=== PATIENT | female | born 1960 | race Caucasian/White ===

== ENCOUNTER 2018-09-15 13:30 | Inpatient (IN) | payer OTHER ==
[2018-09-15] MEDS: CEFEPIME 1GM/50 ML (PMX) 50 ML IVPB (13:54)
[2018-09-15] MEDS: ACETAMINOPHEN 650MG/20.3ML CUP NGT (13:56)
[2018-09-15] MEDS: SODIUM CHLORIDE 0.9% 1L BAG IV* (13:56)
[2018-09-15 14:03] LABS: WHITE BLOOD COUNT 11.7 10^3/ul (4.8-10.8)
[2018-09-15 14:03] LABS: ABNORMAL IP MESSAGE 1; HEMATOCRIT 31.6 % (37.0-47.0); HEMOGLOBIN 9.4 g/dl (12.0-16.0); MEAN CORPUSCULAR HEMOGLOBIN 29.7 pg (29.0-33.0); MEAN CORPUSCULAR HGB CONC 29.7 g/dl (32.0-37.0); MEAN CORPUSCULAR VOLUME 99.7 fl (82.0-101.0); MEAN PLATELET VOLUME 10.8 fl (7.4-10.4); NUCLEATED RED BLOOD CELLS% 0.3 /100WBC (0.0-0.0); PLATELET COUNT 341 10^3/UL (140-415); RED BLOOD COUNT 3.17 10^6/ul (4.20-5.40)
[2018-09-15 14:07] LABS: ADD MAN DIFF? YES; POSITIVE DIFF @See below
[2018-09-15 14:23] LABS: ALANINE AMINOTRANSFERASE 21 IU/L (13-69); ALBUMIN 3.4 g/dl (3.3-4.9); ALBUMIN/GLOBULIN RATIO 1.06; ALKALINE PHOSPHATASE 212 IU/L (42-121); ANION GAP 20 (5-13); ASPARTATE AMINO TRANSFERASE 34 IU/L (15-46); BILIRUBIN,INDIRECT 0.5 mg/dl (0-1.1); BILIRUBIN,TOTAL 0.5 mg/dl (0.2-1.3); BLOOD UREA NITROGEN 85 mg/dl (7-20); CALCIUM 11.9 mg/dl (8.4-10.2); CARBON DIOXIDE 20 mmol/L (21-31); CHLORIDE 108 mmol/L (97-110); Estimated GFR 9 mL/min (>60); GLUCOSE 81 mg/dl (70-220); INR 1.21; LIPASE 14 U/L (23-300); POTASSIUM 4.7 mmol/L (3.5-5.1); PROTIME 15.4 Sec (11.9-14.9); PT RATIO 1.2; SODIUM 148 mmol/L (135-144); TOTAL PROTEIN 6.6 g/dl (6.1-8.1)
[2018-09-15 14:24] LABS: PARTIAL THROMBOPLASTIN TIME 30.1 Sec (23.0-35.0)
[2018-09-15 14:26] LABS: ANISOCYTOSIS 1+ (0-0); BAND NEUTROPHILS #M 5.8 10^3/ul (0.0-0.6); BAND NEUTROPHILS % (M) 50 % (0-4); EOSINOPHILS % (M) 2 % (0-7); GIANT THROMBO% (M) 2 % (0-0); LYMPHOCYTES #M 1.1 10^3/ul (0.8-2.9); LYMPHOCYTES % (M) 10 % (15-51); METAMYELOCYTES #M 0.5 10^3/ul (0.0-0.0); METAMYELOCYTES %M 5 % (0-0); MICROCYTOSIS 1+ (0-0); MONOCYTE #M 0.5 10^3/ul (0.3-0.9); MONOCYTES % (M) 5 % (0-11); MYELOCYTES #M 1.8 10^3/ul (0.0-0.0); MYELOCYTES % (M) 16 % (0-0); PLATELET ESTIMATE NORMAL; POIKILOCYTOSIS 1+ (0-0); POLYCHROMASIA 1+ (0-0); PROMYELOCYTES #M 0.2 10^3/ul (0-0); PROMYELOCYTES % (M) 2 % (0-0); REACTIVE LYMPHOCYTES #M 0.4 10^3/ul (0.0-0.0); REACTIVE LYMPHOCYTES% (M) 4 % (0-0); SEG NEUT #M 1.4 10^3/ul (1.6-7.5); SEGMENTED NEUTROPHILS (M) % 6 % (39-77); SMUDGE%M 4 % (0-0)
[2018-09-15 14:34] LABS: TROPONIN-I 0.034 ng/ml (0.000-0.120)
[2018-09-15 14:38] LABS: Arterial Base Excess -8.2 mmol/L (-3.0-3); Arterial Blood Gas Oxygen Sat 98.2 mmHG (95.0-98.0); Arterial COHb 0.3 % (0.0-3.0); Arterial Fraction of Oxyhgb 97.6 % (93.0-99.0); Arterial HCO3 16.2 mmol/L (22.0-26.0); Arterial MetHb 0.3 % (0.0-1.5); Arterial pCO2 29.4 mmhg (35-45); MODE VENT - AC; Site Right Brachial
[2018-09-15] MEDS: VANCOMYCIN 1 GM (PMX) 250 ML IVPB (14:43)
[2018-09-15] MEDS ORDERED: VANCOMYCIN IV PER PHARMACY XX (16:00)
[2018-09-15] MEDS ORDERED: NACL 0.9% 3 ML SYG IV (16:00)
[2018-09-15] MEDS ORDERED: DEXTROSE 50% 50 ML SYRINGE IV ×2 (17:00)
[2018-09-15] MEDS ORDERED: GLUCOSE GEL 15 GRAM TUBE BUCCAL (17:00)
[2018-09-15] MEDS ORDERED: GLUCOSE GEL 15 GRAM TUBE PO ×2 (17:00)
[2018-09-15] MEDS ORDERED: GLUCAGON 1 MG INJ IM (17:00)
[2018-09-15] MEDS: PIPER-TAZO 2.25 GM/NS 50 ML IVPB (17:35)
[2018-09-15] MEDS: SOD CHLORIDE 0.9% 1,000 ML IV (17:36)
[2018-09-15] MEDS: LABETALOL HCL 20MG INJ IV (17:55)
[2018-09-15] MEDS ORDERED: PIPER-TAZO 3.375 GM IV (PMX) 100 ML IVPB (18:00)
[2018-09-15 18:05] LABS: LACTIC ACID 10.5 mmol/L (0.5-2.0)
[2018-09-15] MEDS ORDERED: INSULIN GLARGINE [LANTus] (100 UNITS/ML) SYG SC (21:00)
[2018-09-15] MEDS: INSULIN GLARGINE [LANTus] (100 UNITS/ML) SYG SC (21:00)
[2018-09-15] MEDS: CALCIUM CARBONATE 500 MG CHEW TAB GTB (21:02)
[2018-09-15] MEDS: LEVETIRACETAM (100 MG/ML PO SYG) GTB (21:02)
[2018-09-15] MEDS: AMANTADINE 100 MG/10 ML POSYR GTB (21:02)
[2018-09-15] MEDS: morphine 2 MG INJ IV (21:03)
[2018-09-15] MEDS: DEXTROSE 5%-0.45% NACL 1,000 ML IV (21:30)
[2018-09-15] MEDS ORDERED: PHENYLephrine 20MG IN 250 ML 250 ML (22:06)
[2018-09-15] MEDS: PHENYLephrine 20MG IN 250 ML 250 ML IV (22:33)
[2018-09-16] MEDS: PHENYLephrine 20MG IN 250 ML 250 ML IV ×2 (00:10→01:49)
[2018-09-16] MEDS: PIPER-TAZO 2.25 GM/NS 50 ML IVPB ×4 (00:29→21:49)
[2018-09-16] MEDS ORDERED: SOD CHLORIDE 0.9% 250 ML IV (01:30)
[2018-09-16] MEDS: ALBUMIN HUMAN 25% 100 ML IV (01:43)
[2018-09-16] MEDS: ACCU-CHEK XX ×6 (01:43→20:58)
[2018-09-16] MEDS: SODIUM CHLORIDE 0.45% 500 ML BAG IV* (01:44)
[2018-09-16] MEDS: SOD CHLORIDE 0.9% 100 ML IV (02:30)
[2018-09-16] MEDS: PHENYLephrine 80 MG in DEXTROSE 5% 242 ML IV ×4 (03:21→23:18)
[2018-09-16 05:13] LABS: WHITE BLOOD COUNT 13.6 10^3/ul (4.8-10.8)
[2018-09-16 05:13] LABS: ABNORMAL IP MESSAGE 1; HEMATOCRIT 26.6 % (37.0-47.0); MEAN CORPUSCULAR HEMOGLOBIN 29.7 pg (29.0-33.0); MEAN CORPUSCULAR HGB CONC 30.1 g/dl (32.0-37.0); MEAN CORPUSCULAR VOLUME 98.9 fl (82.0-101.0); MEAN PLATELET VOLUME 10.4 fl (7.4-10.4); PLATELET COUNT 316 10^3/UL (140-415); RED BLOOD COUNT 2.69 10^6/ul (4.20-5.40); RED CELL DISTRIBUTION WIDTH 17.2 % (11.5-14.5)
[2018-09-16 05:21] LABS: HEMOGLOBIN A1C 5.9 % (0-5.9)
[2018-09-16 05:25] LABS: POSITIVE DIFF @See below
[2018-09-16 05:26] LABS: ADD MAN DIFF? YES
[2018-09-16 05:35] LABS: ANION GAP 17 (5-13); BLOOD UREA NITROGEN 77 mg/dl (7-20); CARBON DIOXIDE 17 mmol/L (21-31); CHLORIDE 114 mmol/L (97-110); GLUCOSE 98 mg/dl (70-220); MAGNESIUM 2.1 mg/dl (1.7-2.5); PHOSPHORUS 4.8 mg/dl (2.5-4.9); POTASSIUM 4.8 mmol/L (3.5-5.1); SODIUM 148 mmol/L (135-144)
[2018-09-16 05:40] LABS: Estimated GFR 12 mL/min (>60)
[2018-09-16 05:44] LABS: CREATININE 3.92 mg/dl (0.44-1.00)
[2018-09-16] MEDS: LEVOTHYROXINE 75 MCG TAB GTB (06:18)
[2018-09-16] MEDS: SENNA TAB GTB (09:00)
[2018-09-16 09:32] LABS: ANISOCYTOSIS 1+ (0-0); BAND NEUTROPHILS #M 6.2 10^3/ul (0.0-0.6); BAND NEUTROPHILS % (M) 46 % (0-4); BASOPHIL #M 0.1 10^3/ul (0.0-0.0); BASOPHILS % (M) 1 % (0-2); BURR CELLS 2+ (0-0); LYMPHOCYTES #M 2.8 10^3/ul (0.8-2.9); LYMPHOCYTES % (M) 21 % (15-51); METAMYELOCYTES %M 8 % (0-0); MICROCYTOSIS 1+ (0-0); MONOCYTE #M 0.1 10^3/ul (0.3-0.9); MONOCYTES % (M) 1 % (0-11); MYELOCYTES #M 0.8 10^3/ul (0.0-0.0); MYELOCYTES % (M) 6 % (0-0); PLATELET ESTIMATE NORMAL; POIKILOCYTOSIS 2+ (0-0); REACTIVE LYMPHOCYTES #M 0.1 10^3/ul (0.0-0.0); REACTIVE LYMPHOCYTES% (M) 1 % (0-0); SEGMENTED NEUTROPHILS (M) % 16 % (39-77); SMUDGE%M 6 % (0-0); TOXIC GRANULATION 2+ (0-0)
[2018-09-16] MEDS: LEVETIRACETAM (100 MG/ML PO SYG) GTB ×2 (09:58→21:49)
[2018-09-16] MEDS: MAGNESIUM HYDROXIDE 30ML CUP GTB (09:58)
[2018-09-16] MEDS: FOLIC ACID 1 MG TAB GTB (09:59)
[2018-09-16] MEDS: ASCORBIC ACID 500 MG TAB GTB (09:59)
[2018-09-16] MEDS: AMANTADINE 100 MG/10 ML POSYR GTB ×2 (09:59→20:58)
[2018-09-16] MEDS: ZINC SULFATE 220 MG CAP GTB (10:00)
[2018-09-16] MEDS: CALCIUM CARBONATE 500 MG CHEW TAB GTB ×2 (10:00→20:58)
[2018-09-16] MEDS: DEXTROSE 5%-0.45% NACL 1,000 ML IV (11:50)
[2018-09-16] MEDS: ONDANSETRON 4 MG INJ IV (14:11)
[2018-09-16] MEDS ORDERED: FENTAnyl (DRIP) 1000 mcg/100mL 100 ML IV (14:39)
[2018-09-16] MEDS: FENTAnyl (DRIP) 1000 mcg/100mL 100 ML IV ×2 (15:11→22:35)
[2018-09-16] MEDS: DEXTROSE 5%-0.9% NACL 1,000 ML IV (15:17)
[2018-09-16] MEDS: LACTATED RINGER'S 1,000 ML IV (15:22)
[2018-09-16] MEDS: BALSAM PERU/CASTOR OIL 60 GM TUBE TOP (20:58)
[2018-09-16] MEDS: INSULIN GLARGINE [LANTus] (100 UNITS/ML) SYG SC (21:06)
[2018-09-17] MEDS: ACCU-CHEK XX ×6 (01:54→20:19)
[2018-09-17] MEDS: DEXTROSE 5%-0.9% NACL 1,000 ML IV ×4 (01:55→23:59)
[2018-09-17] MEDS: PIPER-TAZO 2.25 GM/NS 50 ML IVPB ×3 (05:04→21:11)
[2018-09-17 05:05] LABS: AADO2 Arterial 178.3 mmHg (7.0-24.0); Allen Test ACCEPTAB; Arterial Base Excess -10.2 mmol/L (-3.0-3); Arterial Blood Gas Oxygen Sat 92.7 mmHG (95.0-98.0); Arterial COHb 0.3 % (0.0-3.0); Arterial Fraction of Oxyhgb 92.1 % (93.0-99.0); Arterial HCO3 14.8 mmol/L (22.0-26.0); Arterial MetHb 0.3 % (0.0-1.5); Arterial pCO2 29.2 mmhg (35-45); MODE VENT - AC; Site Right Radial
[2018-09-17 05:12] LABS: ABNORMAL IP MESSAGE 1; HEMATOCRIT 25.2 % (37.0-47.0); HEMOGLOBIN 7.4 g/dl (12.0-16.0); MEAN CORPUSCULAR HEMOGLOBIN 29.6 pg (29.0-33.0); MEAN CORPUSCULAR HGB CONC 29.4 g/dl (32.0-37.0); MEAN CORPUSCULAR VOLUME 100.8 fl (82.0-101.0); MEAN PLATELET VOLUME 9.9 fl (7.4-10.4); NUCLEATED RED BLOOD CELLS% 0.2 /100WBC (0.0-0.0); PLATELET COUNT 262 10^3/UL (140-415); RED CELL DISTRIBUTION WIDTH 17.1 % (11.5-14.5)
[2018-09-17 05:12] LABS: WHITE BLOOD COUNT 14.1 10^3/ul (4.8-10.8)
[2018-09-17 05:13] LABS: POSITIVE DIFF @See below
[2018-09-17 05:14] LABS: ADD MAN DIFF? YES
[2018-09-17 05:31] LABS: ANION GAP 12 (5-13); BLOOD UREA NITROGEN 75 mg/dl (7-20); CALCIUM 9.2 mg/dl (8.4-10.2); CARBON DIOXIDE 18 mmol/L (21-31); CHLORIDE 115 mmol/L (97-110); GLUCOSE 90 mg/dl (70-220); SODIUM 145 mmol/L (135-144)
[2018-09-17 05:32] LABS: VANCOMYCIN,RANDOM 13.7 ug/ml
[2018-09-17 05:37] LABS: Estimated GFR 13 mL/min (>60)
[2018-09-17 05:40] LABS: CREATININE 3.68 mg/dl (0.44-1.00)
[2018-09-17] MEDS: LEVOTHYROXINE 75 MCG TAB GTB (06:04)
[2018-09-17 07:33] LABS: LACTIC ACID 4.1 mmol/L (0.5-2.0)
[2018-09-17] MEDS: CALCIUM CARBONATE 500 MG CHEW TAB GTB ×2 (08:48→20:20)
[2018-09-17] MEDS: ZINC SULFATE 220 MG CAP GTB (08:48)
[2018-09-17] MEDS: AMANTADINE 100 MG/10 ML POSYR GTB ×2 (08:48→20:19)
[2018-09-17] MEDS: ASCORBIC ACID 500 MG TAB GTB (08:48)
[2018-09-17] MEDS: LEVETIRACETAM (100 MG/ML PO SYG) GTB ×2 (08:48→20:19)
[2018-09-17] MEDS: FOLIC ACID 1 MG TAB GTB (08:48)
[2018-09-17] MEDS: MAGNESIUM HYDROXIDE 30ML CUP GTB (09:00)
[2018-09-17] MEDS: SENNA TAB GTB (09:00)
[2018-09-17] MEDS: BALSAM PERU/CASTOR OIL 60 GM TUBE TOP ×2 (09:02→20:21)
[2018-09-17] MEDS: PHENYLephrine 80 MG in DEXTROSE 5% 242 ML IV ×2 (09:05→18:08)
[2018-09-17 10:16] LABS: BAND NEUTROPHILS #M 5.4 10^3/ul (0.0-0.6); BAND NEUTROPHILS % (M) 39 % (0-4); BURR CELLS 1+ (0-0); EOSINOPHILS % (M) 6 % (0-7); GIANT THROMBO% (M) 3 % (0-0); LYMPHOCYTES #M 1.5 10^3/ul (0.8-2.9); LYMPHOCYTES % (M) 11 % (15-51); METAMYELOCYTES #M 0.2 10^3/ul (0.0-0.0); METAMYELOCYTES %M 2 % (0-0); MONOCYTE #M 0.5 10^3/ul (0.3-0.9); MONOCYTES % (M) 4 % (0-11); MYELOCYTES #M 0.1 10^3/ul (0.0-0.0); MYELOCYTES % (M) 1 % (0-0); PLATELET ESTIMATE NORMAL; POIKILOCYTOSIS 3+ (0-0); POLYCHROMASIA 3+ (0-0); PROMYELOCYTES #M 0.1 10^3/ul (0-0); PROMYELOCYTES % (M) 1 % (0-0); SEG NEUT #M 5.8 10^3/ul (1.6-7.5); SEGMENTED NEUTROPHILS (M) % 36 % (39-77); SMUDGE%M 6 % (0-0)
[2018-09-17] MEDS: SOD CHLORIDE 0.9% 1,000 ML IV (12:50)
[2018-09-17] MEDS: FENTAnyl (DRIP) 1000 mcg/100mL 100 ML IV ×2 (13:04→22:34)
[2018-09-17 14:31] LABS: SODIUM,URINE RANDOM 14 mmol/L (30-90)
[2018-09-17 14:35] LABS: ADD UMIC YES; UR ASCORBIC ACID 40 mg/dL (NEGATIVE); UR BACTERIA FEW /HPF (NONE SEEN); UR BILIRUBIN (Dip) NEGATIVE (NEGATIVE); UR BLOOD (Dip) NEGATIVE (NEGATIVE); UR BUDDING YEAST MANY /HPF (NONE SEEN); UR CLARITY CLOUDY (CLEAR); UR COLOR AMBER (YELLOW); UR GLUCOSE (Dip) NEGATIVE (NEGATIVE); UR KETONES (Dip) NEGATIVE (NEGATIVE); UR LEUKOCYTE ESTERASE (Dip) 2+ Leu/ul (NEGATIVE); UR NITRITE (Dip) NEGATIVE (NEGATIVE); UR NONSQUAMOUS EPITHELIAL CELL 2 /HPF (NONE SEEN); UR RBC 12 /HPF (0-5); UR SPECIFIC GRAVITY (Dip) 1.019 (1.003-1.030); UR TOTAL PROTEIN (Dip) 2+ mg/dl (NEGATIVE); UR UROBILINOGEN (Dip) NEGATIVE (NEGATIVE); UR WBC 84 /HPF (0-5)
[2018-09-17] MEDS: VANCOMYCIN 1 GM 250 ML IVPB (15:11)
[2018-09-17] MEDS: morphine 2 MG INJ IV (16:35)
[2018-09-17] MEDS: LORAZEPAM 2 MG INJ IV (16:51)
[2018-09-17] MEDS: INSULIN GLARGINE [LANTus] (100 UNITS/ML) SYG SC (20:25)
[2018-09-18] MEDS: PHENYLephrine 80 MG in DEXTROSE 5% 242 ML IV ×3 (01:55→14:37)
[2018-09-18 02:39] LABS: AADO2 Arterial 607.2 mmHg (7.0-24.0); Arterial Base Excess -16.2 mmol/L (-3.0-3); Arterial Blood Gas Oxygen Sat 88.2 mmHG (95.0-98.0); Arterial COHb 0.3 % (0.0-3.0); Arterial Fraction of Oxyhgb 87.7 % (93.0-99.0); Arterial HCO3 11.6 mmol/L (22.0-26.0); Arterial MetHb 0.3 % (0.0-1.5); Arterial pCO2 34.8 mmhg (35-45); MODE VENT - AC; Site LB
[2018-09-18] MEDS: NA BICARBONATE 8.4% 50 ML SYG IV ×2 (03:07→06:51)
[2018-09-18 05:10] LABS: ABNORMAL IP MESSAGE 1; HEMATOCRIT 25.9 % (37.0-47.0); HEMOGLOBIN 7.7 g/dl (12.0-16.0); MEAN CORPUSCULAR HEMOGLOBIN 29.6 pg (29.0-33.0); MEAN CORPUSCULAR HGB CONC 29.7 g/dl (32.0-37.0); MEAN CORPUSCULAR VOLUME 99.6 fl (82.0-101.0); MEAN PLATELET VOLUME 10.1 fl (7.4-10.4); NUCLEATED RED BLOOD CELLS% 0.5 /100WBC (0.0-0.0); PLATELET COUNT 236 10^3/UL (140-415); RED CELL DISTRIBUTION WIDTH 17.2 % (11.5-14.5)
[2018-09-18 05:10] LABS: WHITE BLOOD COUNT 13.1 10^3/ul (4.8-10.8)
[2018-09-18 05:21] LABS: AADO2 Arterial 596.6 mmHg (7.0-24.0); Arterial Base Excess -12.7 mmol/L (-3.0-3); Arterial Blood Gas Oxygen Sat 93.5 mmHG (95.0-98.0); Arterial COHb 0.2 % (0.0-3.0); Arterial Fraction of Oxyhgb 93.1 % (93.0-99.0); Arterial HCO3 13.7 mmol/L (22.0-26.0); Arterial MetHb 0.2 % (0.0-1.5); MODE VENT - AC; Site LB
[2018-09-18 05:28] LABS: POSITIVE DIFF @See below
[2018-09-18 05:29] LABS: ADD MAN DIFF? YES
[2018-09-18 05:30] LABS: IRON 109 ug/dl (35-150)
[2018-09-18] MEDS: ACCU-CHEK XX ×4 (05:39→13:00)
[2018-09-18 05:40] LABS: % IRON SATURATION 74 % SAT (22-52); TOTAL IRON BINDING CAPACITY 147 ug/dl (241-421)
[2018-09-18] MEDS: PIPER-TAZO 2.25 GM/NS 50 ML IVPB (05:40)
[2018-09-18 05:47] LABS: ANION GAP 15 (5-13); BLOOD UREA NITROGEN 70 mg/dl (7-20); CALCIUM 8.9 mg/dl (8.4-10.2); CARBON DIOXIDE 18 mmol/L (21-31); CHLORIDE 115 mmol/L (97-110); CREATININE 3.71 mg/dl (0.44-1.00); Estimated GFR 13 mL/min (>60); GLUCOSE 148 mg/dl (70-220); POTASSIUM 3.5 mmol/L (3.5-5.1); SODIUM 148 mmol/L (135-144)
[2018-09-18 05:48] LABS: LACTIC ACID 6.3 mmol/L (0.5-2.0)
[2018-09-18] MEDS: LEVOTHYROXINE 75 MCG TAB GTB (06:51)
[2018-09-18] MEDS: FENTAnyl (DRIP) 1000 mcg/100mL 100 ML IV (08:47)
[2018-09-18] MEDS: MAGNESIUM HYDROXIDE 30ML CUP GTB (08:48)
[2018-09-18] MEDS: FOLIC ACID 1 MG TAB GTB (08:48)
[2018-09-18] MEDS: BALSAM PERU/CASTOR OIL 60 GM TUBE TOP (08:48)
[2018-09-18] MEDS: SENNA TAB GTB (08:48)
[2018-09-18] MEDS: ZINC SULFATE 220 MG CAP GTB (08:48)
[2018-09-18] MEDS: AMANTADINE 100 MG/10 ML POSYR GTB (08:48)
[2018-09-18] MEDS: CALCIUM CARBONATE 500 MG CHEW TAB GTB (08:48)
[2018-09-18] MEDS: LEVETIRACETAM (100 MG/ML PO SYG) GTB (08:48)
[2018-09-18] MEDS: ASCORBIC ACID 500 MG TAB GTB (08:49)
[2018-09-18 09:30] LABS: ANISOCYTOSIS 3+ (0-0); BAND NEUTROPHILS #M 5.1 10^3/ul (0.0-0.6); BAND NEUTROPHILS % (M) 39 % (0-4); BURR CELLS 2+ (0-0); EOSINOPHILS % (M) 4 % (0-7); LYMPHOCYTES % (M) 16 % (15-51); METAMYELOCYTES #M 0.2 10^3/ul (0.0-0.0); METAMYELOCYTES %M 2 % (0-0); MICROCYTOSIS 3+ (0-0); PLATELET ESTIMATE NORMAL; POIKILOCYTOSIS 3+ (0-0); POLYCHROMASIA 3+ (0-0); SEG NEUT #M 5.8 10^3/ul (1.6-7.5); SEGMENTED NEUTROPHILS (M) % 39 % (39-77); SMUDGE%M 1 % (0-0)
[2018-09-18] MEDS: SODIUM BICARBONATE (IV ADD) 100 MEQ in DEXTROSE 5%-0.45% NACL 1,000 ML IV (10:45)
[2018-09-18] MEDS ORDERED: NORepinephrine 8MG/250 ML (PMX 250 ML (13:09)
[2018-09-18] MEDS: NORepinephrine 8MG/250 ML (PMX 250 ML IV (13:23)
[2018-09-18] MEDS: metroNIDAZOLE 500 MG/NS (PMX) 100 ML IVPB (13:40)
[2018-09-18] MEDS ORDERED: COLISTIMETHATE 75 MG in SOD CHLORIDE 0.9% 100 ML IVPB (15:00)
[2018-09-18] MEDS ORDERED: VANCOMYCIN HCL 250 MG/5ML POSYG PO (18:00)
[2018-09-18] MEDS ORDERED: LINEZOLID 600 MG/D5W (PMX) 300 ML IVPB (21:00)
[2018-09-18] MEDS ORDERED: MUPIROCIN 2% 22 GM OINT TOP (21:00)
[2018-09-19] MEDS ORDERED: MULTIVITAMINS 30 ML CUP PEG (09:00)
== END 2018-09-18 16:41 | disposition expired | DRG 871 ==
LOC: E/R 13:30 → ICU 16:42
PROC: 5A1945Z Respiratory Ventilation, 24-96 Consecutive Hours (ICD-10-PCS; principal; 2018-09-15)
DX: A41.9 Sepsis, unspecified organism (principal); R65.21 Severe sepsis with septic shock; J96.01 Acute respiratory failure with hypoxia; J18.9 Pneumonia, unspecified organism; G92 Toxic encephalopathy; N17.9 Acute kidney failure, unspecified; Z99.11 Dependence on respirator [ventilator] status; E87.2 Acidosis; N39.0 Urinary tract infection, site not specified; E87.0 Hyperosmolality and hypernatremia; E86.0 Dehydration; Z93.0 Tracheostomy status; G20 Parkinson's disease; R13.10 Dysphagia, unspecified; Z93.1 Gastrostomy status; E11.9 Type 2 diabetes mellitus without complications; K21.9 Gastro-esophageal reflux disease without esophagitis; I10 Essential (primary) hypertension; D64.9 Anemia, unspecified; Y95 Nosocomial condition; B96.1 Klebsiella pneumoniae [K. pneumoniae] as the cause of diseases classified elsewhere; B95.62 Methicillin resistant Staphylococcus aureus infection as the cause of diseases classified elsewhere; B96.4 Proteus (mirabilis) (morganii) as the cause of diseases classified elsewhere; B96.5 Pseudomonas (aeruginosa) (mallei) (pseudomallei) as the cause of diseases classified elsewhere; Z79.4 Long term (current) use of insulin; Z74.01 Bed confinement status; Z86.73 Personal history of transient ischemic attack (TIA), and cerebral infarction without residual deficits
CPT/HCPCS: 36415; 36600; 71045; 76775; 80048; 80053; 80202; 81001; 82803; 82962; 83036; 83540; 83605; 83690; 83735; 84100; 84155; 84300; 84484; 85025; 85610; 85730; 86850; 86900; 86901; 87040-91; 87070; 87075; 87081; 87086; 87400; 89190; 93005; 94002; 94003; 96374; 99291-25